=== PATIENT | female | born 1960 | race Hispanic/Latino ===

== ENCOUNTER 2020-11-14 13:19 | Emergency (ER) | payer BC, SELFPAY ==
[2020-11-14 14:53] VITALS: BP 144/81; PULSE 59; RESP 20; TEMP 36.7; O2SAT 100
--- NOTE | 2020-11-14 14:55 | ECG_ITS ---
Measurements Intervals [place] Rate: 60 P: 75 FL: 147 QRS: 38 QRSD: 84 T: 49 QT: 424 QTc: 424 Interpretive Statements SINUS RHYTHM BORDERLINE ST ABNORMALITY- INFERIOR LEADS BASELINE ARTIFACT- I, II, III, AVR, AVF, V3 BORDERLINE ECG Electronically Signed On 11-14-2020 15:14:51 CDT by Arnol Fitch D.O.
[2020-11-14 15:00] VITALS: BP 140/72; PULSE 61; RESP 20; O2SAT 100
[2020-11-14] MEDS: IBUPROFEN 600 MG TABLET PO (15:05)
[2020-11-14 15:11] LABS: Basophils Absolute Auto 0.02 K/mm3 (0.00-0.10); Basophils Percent Auto 0.3 % (0.0-1.0); Eosinophils Absolute Auto 0.24 K/mm3 (0.02-0.50); Eosinophils Percent Auto 3.3 % (1.0-6.0); Hematocrit 39.2 % (35.0-49.0); Hemoglobin 12.5 g/dL (12.0-15.0); Immature Granulocyte Absolute 0.02 K/mm3 (0.00-0.00); Immature Granulocyte Percent A 0.3 % (0.0-0.0); Lymphocytes Absolute Auto 2.02 K/mm3 (1.10-4.50); Lymphocytes Percent Auto 27.4 % (18.0-42.0); Mean Corpuscular HGB Conc 31.9 g/dL (32.0-36.0); Mean Corpuscular Hemoglobin 23.3 pg (27.0-31.0); Mean Corpuscular Volume 73.1 fL (78.0-102.0); Mean Platelet Volume 10.3 fl (9.2-11.8); Monocytes Absolute Auto 0.44 K/mm3 (0.10-0.90); Neutrophils Absolute Auto 4.6 K/mm3 (1.7-7.2); Neutrophils Percent Auto 62.7 % (50.0-70.0); Platelet Count Result 200 K/mm3 (150-420); Red Blood Count 5.36 M/mm3 (4.20-5.40); Red Cell Distribution Width 13.8 % (11.6-14.4); White Blood Count 7.4 K/mm3 (4.8-10.8)
--- NOTE | 2020-11-14 15:24 | ED.GENADULT ---
HPI - General Adult General Chief complaint: Arrhythmia/Palpitations Stated complaint: high BP, headache on top L side, hot flashes Source: patient Mode of arrival: ambulatory Limitations: no limitations History of Present Illness HPI narrative: Desire is a 60F with a PMH of alph trait thalassemia, HlD, hypothyroidism, vitamin D deficiency and anxiety that came to the ED with various concerns. She reports that she woke up this morning very stressed as she had a lot to do. She skipped her morning yoga which she almost never does. Before going to work she felt her heart racing for a little bit and felt light headed. She did not lose consciousness but apparently looked pale. This went away but then she had another episode of palpitations and then had a left sided mild headache that came on over the morning. No vision or hearing changes. No N/V, CP, SOB or syncope. Related Data Home Medications Medication Instructions Recorded Confirmed alendronate 70 mg tablet 70 mg PO WEEKLY 10/30/20 11/14/20 Allergies Allergy/AdvReac Type Severity Reaction Status Date / Time Sulfa (Sulfonamide Allergy Unknown Unknown Verified 11/14/20 15:15 Antibiotics) Review of Systems Constitutional: Constitutional: Reports no additional constitutional complaints Eyes: Eyes: Reports no additional eye complaints ENT: Reports as per HPI Cardiovascular: Cardiovascular: Reports as per HPI Respiratory: Respiratory: Reports no additional respiratory complaints Gastrointestinal: Gastrointestinal: Reports no additional gastrointestinal complaints Genitourinary: Genitourinary: Reports no additional female genitourinary complaints Musculoskeletal: Musculoskeletal: Reports no additional musculoskeletal complaints Integumentary/Breasts: Skin/Breast: Reports system reviewed and no additional complaints, except as docu Neurologic: Reports system reviewed and no additional complaints, except as documented Psychiatric: Psychiatric: Reports no additional psychiatric complaints Endocrine: Endocrine: Reports no additional endocrine complaints Hematologic/Lymphatic: Hematologic/Lymphatic: Reports no additional hematologic/lymphatic complaints Allergic/Immunologic: Allergic/Immunologic: Reports no additional allergic/immunologic complaints [facility] Family History Family History Other Family history of mental disorder Hypertension Social History Social History Smoking status: Never smoker Alcohol intake: never Gender identity (if verbalized by the patient): Female Exam Const: General: healthy appearing, no acute distress and alert Orientation/consciousness: patient oriented x3 Limitations: altered mental status HENMT: Head: normal to inspection Other: atraumatic Eyes: Conjunctivae: conjunctivae normal Pupils: Equal, round and reactive pupils present EOM: EOMs intact bilaterally Neck: Neck: normal visual inspection and no lymphadenopathy Chest: Chest palpation & inspection: normal inspection of the chest Resp: Effort & Inspection: normal respiratory effort and not tachypneic Auscultation: clear to auscultation bilaterally Cardio: Rate: regular rate Rhythm: regular rhythm Skin: General skin exam: normal color Rashes: no rashes Neuro: General: patient oriented x3, moves all extremities, no meningeal signs, no focal motor deficits and CN's II-XI intact bilaterally Cranial nerves: Yes Nystagmus not present Speech: normal speech Gait exam (Neuro): Normal gait present Other: normal finger to nose. Normal rapid alternating movements Extrem: General: normal to inspection Psych: Appearance: well kempt Affect: Anxious affect present Thought content: Yes other (anxious thoughts ) Course Course Emergency Course: Desire was evaluated. She requested naproxen for her headache. Ordered labs and EkG. EKG showed NS
[2020-11-14 15:27] LABS: Alanine Aminotransferase 22 U/L (14-59); Albumin Level 4.3 g/dL (3.4-5.0); Alkaline Phosphatase 58 U/L (46-116); Anion Gap 10 mmol/L (8-16); Aspartate Amino Transferase 17 U/L (15-37); Bilirubin,Total 0.4 mg/dL (0.00-1.00); Blood Urea Nitrogen 16 mg/dL (7-18); Calcium 9.2 mg/dL (8.5-10.1); Carbon Dioxide 29 mmol/L (21-32); Chloride 104 mmol/L (98-108); Estimated CRCL calculation 93 ml/min; Estimated Glomerular Filt Rate > 60; Glucose 90 mg/dL (70-99); Osmolality Calculated 297 mOsm/kg (285-295); Sodium 143 mmol/L (136-145); Total Protein 7.3 g/dL (6.4-8.2)
[2020-11-14 16:00] VITALS: BP 122/68; PULSE 64; RESP 20; O2SAT 99
[2020-11-14 16:16] LABS: Thyroid Stimulating Hormone 1.77 uIU/mL (0.36-3.74)
[2020-11-14 16:35] VITALS: BP 123/70; PULSE 62; RESP 20; O2SAT 100
== END 2020-11-14 16:35 | disposition home or self-care (01) ==
PROVIDERS: Emergency Provider Family Medicine; PCP Internal Medicine
DX: F41.9 Anxiety disorder, unspecified (principal)
CPT/HCPCS: 36415; 80053; 84443; 85025; 93005; 99283; A9270

== ENCOUNTER 2023-08-20 20:32 | Emergency (ER) | payer BC, SELFPAY ==
--- NOTE | ~2023-08-20 | CT_ITS ---
EXAMINATION: CT abdomen pelvis w con DATE: 08/20/2023 21:46 INDICATION: Abdominal pain. TECHNIQUE: Computed tomography (CT) of the abdomen and pelvis was performed with 100 mL Omnipaque 350 intravenous contrast. Automated exposure control and iterative reconstruction technique were employe d. The dose-length product was 258.04 mGy-cm. COMPARISON: None. FINDINGS: The visualized portions of the lung bases are clear without pneumonia or pleural effusion. The liver, gallbladder, spleen, pancreas, and adrenal glands are normal. There are cysts in the kidne ys measuring up to 15 mm on the right. There are no dilated loops of bowel. The appendix is not visua lized. There are no pathologically enlarged lymph nodes. There is no free intraperitoneal fluid. Ther e is mild lumbar spondylosis. IMPRESSION: 1. No etiology for the patient's symptoms. Reviewed, dictated and finalized at location E.
[2023-08-20 20:34] VITALS: BP 153/80; PULSE 76; RESP 18; TEMP 36.9; O2SAT 98
--- NOTE | 2023-08-20 20:47 | ECG_ITS ---
SEE SCANNED COPY FOR CONFIRMED REPORT MTDD
[2023-08-20 21:02] LABS: Basophils Absolute Auto 0.03 K/mm3 (0.00-0.10); Basophils Percent Auto 0.3 % (0.0-1.0); Eosinophils Absolute Auto 0.28 K/mm3 (0.02-0.50); Eosinophils Percent Auto 3.2 % (1.0-6.0); Hematocrit 35.9 % (35.0-49.0); Hemoglobin 11.1 g/dL (12.0-15.0); Immature Granulocyte Absolute 0.03 K/mm3 (0.00-0.00); Immature Granulocyte Percent A 0.3 % (0.0-0.0); Lymphocytes Absolute Auto 2.13 K/mm3 (1.10-4.50); Lymphocytes Percent Auto 24.1 % (18.0-42.0); Mean Corpuscular HGB Conc 30.9 g/dL (32-36); Mean Corpuscular Hemoglobin 22.7 pg (27.0-31.0); Mean Corpuscular Volume 73.3 fL (78.0-102.0); Mean Platelet Volume 9.4 fl (9.2-11.8); Monocytes Absolute Auto 0.72 K/mm3 (0.10-0.90); Monocytes Percent Auto 8.1 % (2.0-11.0); Neutrophils Absolute Auto 5.65 K/mm3 (1.70-7.20); Platelet Count Result 290 K/mm3 (150-420); Red Cell Distribution Width 14.1 % (11.6-14.4); White Blood Count 8.8 K/mm3 (4.8-10.8)
[2023-08-20] MEDS: PANTOPRAZOLE SODIUM IV 40 MG VIAL IV PUSH (21:15)
[2023-08-20] MEDS: KETOROLAC 30 MG/ML VIAL (*BKC) IV PUSH (21:15)
[2023-08-20] MEDS: ONDANSETRON INJ 4 MG/2 ML VIAL IV PUSH (21:16)
[2023-08-20] MEDS: SODIUM CHLORIDE 0.9% IV 1,000 ML 999 ML IV CONT (21:16)
[2023-08-20 21:18] LABS: Partial Thromboplastin Time 26.4 Sec (23.9-30.70); Prothrombin Time 10.5 Seconds (9.50-12.1)
[2023-08-20 21:21] LABS: Alanine Aminotransferase 27 U/L (14-59); Albumin Level 3.6 g/dL (3.4-5.0); Alkaline Phosphatase 69 U/L (46-116); Anion Gap 7 mmol/L (4-12); Aspartate Amino Transferase 25 U/L (15-37); Bilirubin,Total 0.4 mg/dL (0.00-1.00); Blood Urea Nitrogen 19 mg/dL (7-18); CRP < 0.5 mg/dL (0.0-0.9); Calcium 8.8 mg/dL (8.5-10.1); Carbon Dioxide 31 mmol/L (21-32); Chloride 101 mmol/L (98-108); Estimated CRCL calculation 73 ml/min; Estimated Glomerular Filt Rate > 60; Glucose 93 mg/dL (70-99); Lipase 32 U/L (16-77); Osmolality Calculated 290 mOsm/kg (285-295); Sodium 139 mmol/L (136-145); Total Protein 7.4 g/dL (6.4-8.2)
[2023-08-20 21:29] LABS: Appearance Urine Clear (Clear); Bilirubin Urine Negative (Negative); Blood Urine Negative (Negative); Color Urine Light Yellow (Yellow); Glucose Urine UA Negative (Negative); Ketones Urine Negative (Negative); Leukocyte Esterase Ur Trace LEU/UL (Negative); Nitrate Urine Negative (Negative); Protein Urine Negative (Negative); Specific Grav Ur <= 1.005 (1.010-1.020); Urobilinogen Urine 0.2 mg/dL (0.2-1.0)
[2023-08-20 21:34] LABS: Lactic Acid Reflex 0.5 mmol/L (0.4-2.0)
[2023-08-20 21:35] LABS: Add Urine Microscopic? YES; Bacteria Urine Trace /hpf; RBC Urine 0-2 /hpf (0-2); Squamous Epithelial Cell Urine Rare /hpf (Few); WBC Urine 0-3 /hpf (0-3)
--- NOTE | 2023-08-20 21:42 | ED.ABDPAIN ---
HPI - Abdominal Pain General Chief Complaint: Abdominal Pain Stated Complaint: abdominal pain Time Seen by Provider: 08/20/23 20:40 Source: patient Mode of arrival: ambulatory Limitations: no limitations History of Present Illness HPI narrative: this is a 63-year-old female with a history of hypothyroidism presents with abdominal pain, patient states that she has been having epigastric type abdominal pain for the last month but this morning started to have suprapubic pain with no fever chills denies dysuria or hematuria mild nausea with no vomiting no diarrhea or constipation. Patient denies any fever chills no chest pain no shortness of breath. MD elicited complaint: abdominal pain Onset (ago): hour(s) Pain Consistency: constant Location: suprapubic Severity: moderate Pain scale (0-10): 8 Quality: aching and fullness Radiation: none Migration to: no migration Exacerbating factors: nothing Relieving factors: nothing Related Data Home Medications Medication Instructions Recorded Confirmed conjugated estrogens 0.625 mg/gram 0.625 mg vaginal 08/20/23 vaginal cream (Premarin) Allergies Allergy/AdvReac Type Severity Reaction Status Date / Time Sulfa (Sulfonamide Allergy Intermediate Hives Verified 08/20/23 20:38 Antibiotics) Review of Systems Review of Systems: All systems reviewed & are unremarkable except as noted in HPI and below PMFSH Past Medical History Medical History Hypothyroidism (acquired) Family History Family History Other Family history of mental disorder Hypertension Social History Social History Social History: Caffeine-coffee and black tea Smoking status: Never smoker Alcohol intake: never Gender identity (if verbalized by the patient): Female Exam Const: General: healthy appearing, no acute distress and alert Nutritional Appearance: well nourished Orientation/consciousness: patient oriented x3 Limitations: no limitations Neck: Neck: normal visual inspection, no lymphadenopathy and no meningeal signs Chest: Chest palpation & inspection: normal inspection of the chest Resp: Effort & Inspection: normal respiratory effort Auscultation: clear to auscultation bilaterally Cardio: Rate: regular rate Rhythm: regular rhythm GI: GI Palp: Yes Soft to palpation and Yes Tenderness to palpation present (GI) Other: suprapubic tenderness with palpation : General: Yes Bladder palpation abnormal Urinary Catheter: Urinary Catheter: patent and draining Back/Spine/Pelvis: Back: no CVA tenderness Skin: General skin exam: normal color Rashes: no rashes Neuro: General: patient oriented x3, moves all extremities and no meningeal signs Extrem: General: normal to inspection Psych: Mental Status: mental status grossly normal Affect: normal affect Course Course Emergency Course: patient received IV fluids and Toradol for pain, CT scan revealed reviewed and shows no acute abnormalities UA shows positive leukocytes and will give a dose of Macrobid otherwise lab work is unremarkable. Vital Signs Vital signs: Vital Signs Temperature 36.9 C 08/20/23 20:34 Pulse Rate 76 08/20/23 20:34 Respiratory Rate 18 08/20/23 20:34 Blood Pressure 153/80 H 08/20/23 20:34 Pulse Oximetry 98 08/20/23 20:34 Oxygen Delivery Room Air 08/20/23 20:34 Temperature 36.9 C 08/20/23 20:34 Pulse Rate 76 08/20/23 20:34 Respiratory Rate 18 08/20/23 20:34 Blood Pressure 153/80 H 08/20/23 20:34 Pulse Oximetry 98 08/20/23 20:34 Oxygen Delivery Room Air 08/20/23 20:34 MDM - Abdominal Pain Lab Data 08/20/23 20:54 08/20/23 20:54 Labs: Lab Results 08/20/23 08/20/23 Range/Units 20:54 21:26 WBC 8.8 (4.8-10.8) K/mm3 RBC 4.90 (4.20-5.40) M
[2023-08-20] MEDS: NITROFURANTOIN MONOHYD MACROCR 100 MG CAP PO (22:10)
--- NOTE | 2023-08-20 22:15 | PC.NURSE ---
addendum to stop time on NS infusion- stop time is 22:15 on 08/20/23.
== END 2023-08-20 22:15 | disposition home or self-care (01) ==
PROVIDERS: Emergency Provider Emergency Medicine
DX: N39.0 Urinary tract infection, site not specified (principal)
CPT/HCPCS: 36415; 74177; 80053; 81001; 83605; 83690; 85025; 85610; 85730; 86140; 93005; 96361; 96374; 96375; 99284; A9270; C9113; J1885; J2405; J7030; Q9967

== ENCOUNTER 2024-04-25 15:28 | Emergency (ER) | payer BC, SELFPAY ==
[2024-04-25 15:40] VITALS: BP 126/64; PULSE 70; RESP 16; TEMP 37.3; O2SAT 99
--- NOTE | 2024-04-25 15:53 | ED_ITS ---
HPI - General Adult General Chief complaint: Syncope Stated complaint: Fainted History of Present Illness HPI narrative: Desire is a 63F with a PMH of hypothyroidism, anemia, SIBO and osteoporosis that presented to the ED after an episode of syncope earlier today. She became nervous about a crowd in [place], then her hands became cool and clammy and she passed out. No CP, N/V or dyspnea. Related Data Allergies Allergy/AdvReac Type Severity Reaction Status Date / Time Sulfa (Sulfonamide Allergy Intermediate Hives Verified 04/25/24 16:19 Antibiotics) Review of Systems 2 Review of Systems: All systems reviewed & are unremarkable except as noted in HPI and below PMFSH Past Medical History Medical History Hypothyroidism (acquired) Family History Family History Other Family history of mental disorder Hypertension Social History Social History Social History: Caffeine-coffee and black tea Smoking status: Never smoker Alcohol intake: never Gender identity (if verbalized by the patient): Female Exam 2 Const: General: cooperative, healthy appearing, comfortable, no acute distress, well developed, alert, awake and Physically active O rientation/consciousness: oriented to person, oriented to place and oriented to time HENMT: Head: normal to inspection, normocephalic and atraumatic Ears: h earing grossly normal bilaterally and external ears normal Face/Nose/Sinus: N ormal external nose present Eyes: General: appearance normal, both eyes and all related structures P eriorbital: periorbital findings normal Sclera: sclerae normal Pupils: E qual, round and reactive pupils present Neck: Neck: normal visual inspection Chest: Chest palpation & inspection: normal inspection of the chest Resp: Effort & Inspection: normal respiratory effort, able to speak in complete sentences and no respiratory distress Auscultation: clear to auscultation bilaterally Cardio: Jugular venous distension: no JVD Rate: regular rate Rhythm: r egular rhythm GI: Inspection: normal to inspection GI Palp: Yes Soft to palpation A uscultation: normal bowel sounds Skin: General skin exam: normal color and no rashes or lesions noted Neuro: General: oriented to person, oriented to place and oriented to time Cranial nerves: Yes Equal, round and reactive pupils present Extrem: General: normal to inspection Course Course Emergency Course: EKG showed NSR with rate of 69, normal axis, no ST elevation or depression. Dudley Syncope score of 0. Thyroid, blood counts and chemistries were largely unremarkable. Given this it is likely vasovagal syncope. Vital Signs Vital signs: Vital Signs Temperature 99.2 F 04/25/24 15:40 Pulse Rate 70 04/25/24 15:40 Respiratory Rate 16 04/25/24 15:40 Blood Pressure 126/64 04/25/24 15:40 Pulse Oximetry 99 04/25/24 15:40 Oxygen Delivery Room Air 04/25/24 15:40 Temperature 99.2 F 04/25/24 15:40 Pulse Rate 70 04/25/24 15:40 Respiratory Rate 16 04/25/24 15:40 Blood Pressure 126/64 04/25/24 15:40 Pulse Oximetry 99 04/25/24 15:40 Oxygen Delivery Room Air 04/25/24 15:40 Medical Decision Making Vital Signs Vital Signs: Vital Signs Temperature 99.2 F 04/25/24 15:40 Pulse Rate 70 04/25/24 15:40 Respiratory Rate 16 04/25/24 15:40 Blood Pressure 126/64 04/25/24 15:40 Pulse Oximetry 99 04/25/24 15:40 Oxygen Delivery Room Air 04/25/24 15:40 Temperature 99.2 F 04/25/24 15:40 Pulse Rate 70 04/25/24 15:40 Respiratory Rate 16 04/25/24 15:40 Blood Pressure 126/64 04/25/24 15:40 Pulse Oximetry 99 04/25/24 15:40 Oxygen Delivery Room Air 04/25/24 15:40 Lab Data 04/25/24 16:19 04/25/24 16:19 Labs: Lab Results 04/25/24 Range/Units 16:19 WBC 10.5 (4.8-10.8) K/mm3 RBC 5.05 (4.20-5.40) M/mm3 Hgb 11.8 L (12.0-15.0) g/dL Hct 36.0 (35.0-49.0) % MCV 71.3 L (78.0-102.0) fL MCH 23.4 L (27.0-31.0) pg MCHC 32.8 (32-36) g/dL RDW 13.7 (11.6-14.4) % Plt Count 177 (150-420) K/mm3 MPV 9.8 (9.2-11.8) fl Immature Gran % (Auto) 0.4 H (0.0-0.0) % Neut % (Auto) 84.5 H (50.0-70.0) % Lymph % (Auto) 7.0 L (18.0-42.0) % Prentiss % (Auto) 6.6 (2.0-11.0) % Eos % (Auto) 1.2 (1.0-6.0) % Baso % (Auto) 0.3 (0.0-1.0) % Lymph # (Auto) 0.73 L (1.10-4.50) K/mm3 Prentiss # (Auto) 0.69 (0.10-0.90) K/mm3 Eos # (Auto) 0.13 (0.02-0.50) K/mm3 Baso # (Auto) 0.03 (0.00-0.10) K/mm3 Abs Immat Gran (auto) 0.04 H (0.00-0.00) K/mm3 Absolute Neuts (auto) 8.86 H (1.70-7.20) K/mm3 Absolute Nucleated RBC 0.00 (0.00-0.00) K/mm3 Nucleated RBC % 0.0 (0-0.0) % Sodium 141 (136-145) mmol/L Potassium 4.1 (3.5-5.1) mmol/L Chloride 101 (98-108) mmol/L Carbon Dioxide 29 (21-32) mmol/L Anion Gap 11 (4-12) mmol/L BUN 13 (7-18) mg/dL Creatinine 0.51 L (0.55-1.02) mg/dL Estim Creat Clear Calc 78 ml/min Estimated GFR > 60 (59 - ) Glucose 97 (70-99) mg/dL Calculated Osmolality 292 (285-295) mOsm/kg Calcium 9.5 (8.5-10.1) mg/dL Magnesium 2.0 (1.8-2.4) mg/dL Total Bilirubin 0.6 (0.00-1.00) mg/dL AST 18 (15-37) U/L ALT 24 (14-59) U/L Alkaline Phosphatase 58 (46-116) U/L Troponin I < 4.0 (0.00-60.4) ng/L NT-Pro-B Natriuret Pep 169 H (0-125) pg/mL Total Protein 6.8 (6.4-8.2) g/dL Albumin 3.6 (3.4-5.0) g/dL TSH 0.85 (0.36-3.74) uIU/mL Influenza A (RT-PCR) Negative (Negative) Influenza B (RT-PCR) Negative (Negative) RSV (RT-PCR) Negative (Negative) SARS-CoV-2 RNA (RT-PCR) Negative (Negative) Discharge Plan Discharge Clinical Impression: Syncope, vasovagal Patient Disposition: Home, Self-Care Condition: Stable Instructions: Syncope (ED) Patient Language: Stateless Prescriptions: No Action nitrofurantoin monohyd/m-cryst [Macrobid] 100 mg capsule 100 mg PO Q12H 7 Days Qty: 14 0RF Rx Instructions: must administer with a meal/food levothyroxine 25 mcg tablet 25 mcg PO DAILY Qty: 30 0RF Rx Instructions: NEEDS APPOINTMENT FOR FURTHER REFILLS Follow-up/Referrals: Dusty,Elton [Other]
--- NOTE | 2024-04-25 15:59 | ECG_ITS ---
Test Date: 2024-04-25 15:50:44 Measurements Intervals [place] Rate: 69 P: 72 [place]: 148 QRS: 41 QRSD: 85 T: 63 QT: 388 QTc: 416 Interpretive Statements SINUS RHYTHM No previous ECG available for comparison Electronically Signed On 04-26-2024 15:04:19 INSIGHTS ANALYST by Geoff Torres M.D.
[2024-04-25 16:26] LABS: Basophils Absolute Auto 0.03 K/mm3 (0.00-0.10); Basophils Percent Auto 0.3 % (0.0-1.0); Eosinophils Absolute Auto 0.13 K/mm3 (0.02-0.50); Eosinophils Percent Auto 1.2 % (1.0-6.0); Hemoglobin 11.8 g/dL (12.0-15.0); Immature Granulocyte Absolute 0.04 K/mm3 (0.00-0.00); Immature Granulocyte Percent A 0.4 % (0.0-0.0); Lymphocytes Absolute Auto 0.73 K/mm3 (1.10-4.50); Mean Corpuscular HGB Conc 32.8 g/dL (32-36); Mean Corpuscular Hemoglobin 23.4 pg (27.0-31.0); Mean Corpuscular Volume 71.3 fL (78.0-102.0); Mean Platelet Volume 9.8 fl (9.2-11.8); Monocytes Absolute Auto 0.69 K/mm3 (0.10-0.90); Monocytes Percent Auto 6.6 % (2.0-11.0); Neutrophils Absolute Auto 8.86 K/mm3 (1.70-7.20); Neutrophils Percent Auto 84.5 % (50.0-70.0); Platelet Count Result 177 K/mm3 (150-420); Red Blood Count 5.05 M/mm3 (4.20-5.40); Red Cell Distribution Width 13.7 % (11.6-14.4); White Blood Count 10.5 K/mm3 (4.8-10.8)
[2024-04-25 16:55] LABS: Thyroid Stimulating Hormone 0.85 uIU/mL (0.36-3.74)
[2024-04-25 16:58] LABS: Alanine Aminotransferase 24 U/L (14-59); Albumin Level 3.6 g/dL (3.4-5.0); Alkaline Phosphatase 58 U/L (46-116); Anion Gap 11 mmol/L (4-12); Aspartate Amino Transferase 18 U/L (15-37); Bilirubin,Total 0.6 mg/dL (0.00-1.00); Blood Urea Nitrogen 13 mg/dL (7-18); Calcium 9.5 mg/dL (8.5-10.1); Carbon Dioxide 29 mmol/L (21-32); Chloride 101 mmol/L (98-108); Estimated CRCL calculation 78 ml/min; Estimated Glomerular Filt Rate > 60; Glucose 97 mg/dL (70-99); NT Pro B Type Natriuretic Pept 169 pg/mL (0-125); Osmolality Calculated 292 mOsm/kg (285-295); Potassium 4.1 mmol/L (3.5-5.1); Sodium 141 mmol/L (136-145); Total Protein 6.8 g/dL (6.4-8.2)
[2024-04-25 17:01] LABS: Troponin I < 4.0 ng/L (0.00-60.4)
[2024-04-25 17:02] LABS: SARS-CoV-2 RNA PCR Negative (Negative)
[2024-04-25 17:04] LABS: Influenza A QL RT-PCR Negative (Negative); Influenza B QL RT-PCR Negative (Negative); RSV RNA, RT-PCR Negative (Negative)
[2024-04-25 17:23] VITALS: BP 115/61; PULSE 64; RESP 16; TEMP 37.3; O2SAT 100
== END 2024-04-25 17:25 | disposition home or self-care (01) ==
PROVIDERS: Emergency Provider Family Medicine
DX: R55 Syncope and collapse (principal); E03.9 Hypothyroidism, unspecified; Z20.822 Contact with and (suspected) exposure to COVID-19
CPT/HCPCS: 36415; 80053; 83735; 83880; 84443; 84484; 85025; 87637; 93005; 99284